=== PATIENT | female | born 1945 | race African-American/Black ===

== ENCOUNTER 2019-10-17 14:04 | Outpatient (CLI) | payer MEDICARE, MEDICAID, SELFPAY ==
--- NOTE | 2019-10-17 | ECHO_ITS ---
Patient Info Name: Mary Sanford Age: 73 years : 1945 Gender: Female Ht: 67 in Wt: 174 lbs BSA: 1.95 m2 HR: 76 bpm BP: 142 / 79 mmHg Technical Quality: Good Exam Date: 10/17/2019 2:21 PM Exam Location: [facility] Patient Status: Outpatient Admit Date: 10/17/2019 Staff Ordering Physician: PHYSICIAN NOT ON STAFF, NONSTAFF Screw Down: Tanya Aldridge RDCS Attending Provider: PHYSICIAN NOT ON STAFF, NONSTAFF Exam Type: CA echo doppler color flow Study Info Indications I45.10 - Unspecified right bundle-branch block Complete two-dimensional, color flow and Doppler transthoracic echocardiogram is performed. Summary 1. Normal LV size and wall thickness; normal global LV systolic function, ejection fraction estimated at about 65-70%. Grade 1 diastolic dysfunction. Moderate left, mild right atrial enlargement; atrial septum deviated to right suggestive of elevated left atrial pressures. Mild mitral regurgitation. No aortic stenosis or regurgitation. Mild tricuspid regurgitation, mild pulmonary hypertension, RVSP 42 mmHg. Mild pulmonic regurgitation. Left Ventricle Left ventricular chamber dimension is normal. Left ventricular systolic function is normal, estimated at 65-70%. There is no increased left ventricular wall thickness. Left ventricular septal wall motion is normal. The left ventricular diastolic function is grade I diastolic dysfunction. Right Ventricle Right ventricular chamber dimension is normal. Right ventricular systolic function is normal. Left Atria Left atrial chamber dimension is moderately enlarged. Right Atria Right atrial chamber dimension is mildly enlarged. Aortic Valve The aortic valve is trileaflet. There is no aortic valve sclerosis. There is no aortic valve stenosis. There is no aortic valve regurgitation. Pulmonic Valve The pulmonic valve is normal. There is mild pulmonic regurgitation. Mitral Valve The mitral valve has normal leaflets. There is no mitral valve stenosis. There is mild mitral valve regurgitation. Tricuspid Valve The tricuspid valve leaflets are normal. There is mild tricuspid valve regurgitation. Mild pulmonary hypertension, estimated pulmonary arterial systolic pressure is 42 mmHg. Pericardium/Pleural The pericardium appears normal. There is no pericardial effusion. Inferior Vena Cava Normal inferior vena cava with >50% collapse upon inspiration consistent with normal right atrial pressure, 10 mmHg. Aorta The aortic root size at the sinus of Valsalva is normal. The prox ascending aorta size is normal. Left Ventricular Outflow Tract Name Value Normal LVOT 2D LVOT Diameter 1.9 cm LVOT Doppler LVOT Peak Gradient 5 mmHg LVOT Mean Gradient 3 mmHg LVOT VTI 29 cm LVOT VTI/AV VTI Ratio 0.9 LVOT Stroke Volume 81 ml LVOT CO 6.0 l/min LVOT CI 3.1 l/min/m2 Pulmonic Valve
--- NOTE | 2019-10-17 | ECG_ITS ---
Measurements Intervals [place] Rate: 80 P: 65 NC: 169 QRS: -7 QRSD: 157 T: -3 QT: 418 QTc: 483 Interpretive Statements SINUS RHYTHM VENTRICULAR PREMATURE COMPLEX POSSIBLE LEFT ATRIAL ENLARGEMENT RIGHT BUNDLE BRANCH BLOCK BASELINE ARTIFACT- V3 ABNORMAL ECG Electronically Signed On 10-17-2019 14:50:04 CDT by Darrian Walker D.O.
== END 2019-10-17 14:05 | disposition home or self-care (01) ==
DX: I45.10 Unspecified right bundle-branch block (principal); I27.20 Pulmonary hypertension, unspecified
CPT/HCPCS: 93005; 93306

== ENCOUNTER 2020-08-28 10:28 | Outpatient (CLI) | payer MEDICARE, MEDICAID, SELFPAY ==
--- NOTE | ~2020-08-28 | MM_ITS ---
EXAMINATION: MM screening randy BI w carolann HISTORY: Screening TECHNIQUE: Craniocaudal and mediolateral oblique 3-D tomosynthesis images were obtained and synthetic 2-D images were generated. CAD analysis was submitted and interpreted. COMPARISON: Comparison to multiple prior studies sequentially, with oldest reviewed study dated 01/25. BREAST PARENCHYMAL COMPOSITION: The breasts are heterogenously dense, which may obscure small masses. FINDINGS: There are benign calcifications. There is no evidence of suspicious mass, calcification, or architectural distortion to suggest malignancy in either breast. There has been no suspicious interv al change. IMPRESSION: 1. No mammographic evidence of malignancy. 2. Recommend routine screening mammography in one year. BI-RADS Category 1: Negative Reviewed, dictated and finalized at location A.
== END 2020-08-28 10:29 | disposition home or self-care (01) ==
LOC: ANHIMG 10:36
PROVIDERS: Visit Provider Family Medicine
DX: Z12.31 Encounter for screening mammogram for malignant neoplasm of breast (principal)
CPT/HCPCS: 77063; 77067

== ENCOUNTER 2021-11-12 09:18 | Outpatient (CLI) | payer OTHER, SELFPAY ==
--- NOTE | ~2021-11-12 | MM_ITS ---
EXAMINATION: MM screening randy BI w carolann HISTORY: Screening. Status post right lumpectomy for malignancy. TECHNIQUE: Craniocaudal and mediolateral oblique 3-D tomosynthesis images were obtained and synthetic 2-D images were generated. CAD analysis was submitted and interpreted. COMPARISON: Comparison to multiple prior studies sequentially, with oldest reviewed study dated 07/2015. BREAST PARENCHYMAL COMPOSITION: The breasts are heterogeneously dense, which may obscure small masses . FINDINGS: There is no evidence of suspicious mass, calcification, or architectural distortion to sugg est malignancy in either breast. There has been no suspicious interval change. IMPRESSION: 1. No mammographic evidence of malignancy. 2. Recommend routine screening mammography in one year. BI-RADS Category 1: Negative Reviewed, dictated and finalized at location A.
== END 2021-11-12 09:19 | disposition home or self-care (01) ==
PROVIDERS: Visit Provider Obstetrics & Gynecology
DX: Z12.31 Encounter for screening mammogram for malignant neoplasm of breast (principal)
CPT/HCPCS: 77063; 77067

== ENCOUNTER 2022-05-22 19:13 | Emergency (ER) | payer OTHER, SELFPAY ==
[2022-05-22] VITALS (17 sets, daily range): BP systolic 123–154; BP diastolic 63–71; PULSE 75–92; RESP 15–21; TEMP 36.6; O2SAT 96–100
--- NOTE | ~2022-05-22 | CT_ITS ---
EXAMINATION: CT brain wo con DATE: 05/22/2022 19:52 INDICATION: Syncope TECHNIQUE: Computed tomography (CT) of the head was performed without intravenous contrast. The dose- length product was 681.00 mGy-cm. Automated exposure control and iterative reconstruction technique w ere employed. COMPARISON: None FINDINGS: No acute intracranial hemorrhage, infarction, mass or mass effect. No ventriculomegaly or m idline shift. Basilar cisterns are patent. No acute intracranial hemorrhage, infarction, mass or mass effect. Paranasal sinuses and mastoids are pneumatized. No depressed skull fractures. Midline sagitt al images are unremarkable. There are scattered mild periventricular and subcortical white matter laureen nges, most likely related to small vessel ischemic disease (microangiopathy). IMPRESSION: 1. No acute intracranial abnormality. 2: Chronic age-related findings. Reviewed, dictated and finalized at location A. LT FURNACE EXPEDITER
--- NOTE | ~2022-05-22 | CT_ITS ---
EXAMINATION: CT cervical spine wo con DATE: 05/22/2022 19:52 INDICATION: Syncope. Status post fall. Neck pain. TECHNIQUE: Computed tomography (CT) of the cervical spine was performed without intravenous contrast. The dose-length product was 310 mGy-cm. Automated exposure control and iterative reconstruction tech nique were employed. COMPARISON: None FINDINGS: Craniovertebral junction is normal. Vertebral body heights are maintained. Mild degenerativ e disc disease at C5-6. Vertebral body heights are maintained. No acute fracture or traumatic malalig nment. Odontoid process is normal. No significant paraspinal soft tissue abnormality. Lung apices are normal. Thyroid gland is unremarkable. No evidence for perched facet. There is an old avulsion fragm ent from the T1 spinous process. IMPRESSION: 1. No acute abnormality of the cervical spine. Reviewed, dictated and finalized at location A. BULLDOZER
--- NOTE | ~2022-05-22 | XR_ITS ---
XR chest 1V portable 05/22/2022 19:34 Indication: Syncope Procedure: AP portable chest Comparison: 02/23/2012 Findings: Cardiomegaly. Old right fifth rib fracture. No focal air space disease, pulmonary edema, pl eural effusion or suspected pneumothorax. No acute osseous abnormality. Impression: 1: No acute cardiopulmonary disease. Reviewed, dictated and finalized at location A. BING GUIDE Impression: 1: No acute cardiopulmonary disease.
--- NOTE | 2022-05-22 19:20 | ECG_ITS ---
Measurements Intervals [place] Rate: 78 P: 60 MD: 172 QRS: -24 QRSD: 163 T: -3 QT: 399 QTc: 455 Interpretive Statements SINUS RHYTHM VENTRICULAR PREMATURE COMPLEX POSSIBLE LEFT ATRIAL ENLARGEMENT RIGHT BUNDLE BRANCH BLOCK ABNORMAL ECG COMPARED TO ECG 10/17/2019 14:27:45 NO SIGNIFICANT CHANGES Electronically Signed On 05-22-2022 20:26:30 STAFF ASSISTANT by Darrian Walker D.O.
[2022-05-22 19:46] LABS: Basophils Percent Auto 0.8 % (0.2-1.2); Eosinophils Absolute Auto 0.3 K/mm3 (0-0.3); Eosinophils Percent Auto 4.9 % (0-4.4); Hematocrit 32.5 % (37.0-47.0); Hemoglobin 10.7 g/dL (12.0-15.0); Immature Granulocyte Absolute 0.03 K/mm3 (0.00-0.031); Immature Granulocyte Percent A 0.6 % (0-0.5); Lymphocytes Absolute Auto 0.96 K/mm3 (0.9-3.2); Lymphocytes Percent Auto 18.1 % (18.3-44.2); Mean Corpuscular HGB Conc 32.9 g/dl (32-36); Mean Corpuscular Hemoglobin 32.3 pg (26-34); Mean Corpuscular Volume 98.2 fl (80-100); Mean Platelet Volume 10.3 fl (7.4-10.4); Monocytes Absolute Auto 0.7 K/mm3 (0.1-0.6); Monocytes Percent Auto 13.8 % (2.6-8.5); Neutrophils Absolute Auto 3.3 K/mm3 (1.3-6.7); Neutrophils Percent Auto 61.8 % (45.5-73.1); Platelet Count Result 273 k/mm3 (150-375); Red Blood Count 3.31 M/mm3 (4.2-5.4); Red Cell Distribution Width 13.3 % (11.5-14.5); White Blood Count 5.3 K/mm3 (4.5-10.0)
[2022-05-22 20:00] LABS: INR 1.1; Prothrombin Time 14.1 Seconds (11.1-14.7)
[2022-05-22 20:59] LABS: Alanine Aminotransferase 30 U/L (6-35); Albumin Level 3.9 g/dL (3.5-5.1); Alkaline Phosphatase 41 U/L (38-126); Anion Gap 7 mmol/L (8-16); Aspartate Amino Transferase 46 U/L (14-36); Bilirubin,Total 0.4 mg/dL (0.2-1.3); Blood Urea Nitrogen 26 mg/dL (7-17); Calcium 9.2 mg/dL (8.4-10.2); Carbon Dioxide 28 mmol/L (22-30); Chloride 102 mmol/L (98-107); Estimated Glomerular Filt Rate 41; Glucose 112 mg/dL (65-110); Sodium 137 mmol/L (137-145)
[2022-05-22 21:11] LABS: Troponin I 0.014 ng/mL (0.000-0.034)
--- NOTE | 2022-05-22 21:11 | ED.GENADULT ---
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 Patient states that she was standing in the kitchen and passed out. Caregiver who is at bedside states that this happens to her frequently. She denied any chest pain, shortness of breath or palpitations. Onset (ago): minute(s) Location: head Radiation: non-radiation Severity: mild Relieving factors: none Exacerbating factors: none Associated symptoms: denies other symptoms Related Data Home Medications Medication Instructions Recorded Confirmed aspirin 81 mg tablet,delayed 81 mg PO DAILY 01/23/21 01/23/21 release (Adult Low Dose Aspirin) betamethasone valerate 0.1 % 1 applic topical DAILY PRN 01/23/21 01/23/21 topical cream bimatoprost 0.01 % eye drops 1 drp EACH EYE DAILY 01/23/21 01/23/21 (Lumigan) bisacodyl 5 mg tablet,delayed 5 mg PO ONCE 01/23/21 01/23/21 release brimonidine 0.2 % eye drops 1 drp EACH EYE Q8H 01/23/21 01/23/21 cholecalciferol (vitamin D3) 25 25 mcg PO DAILY 01/23/21 01/23/21 mcg (1,000 unit) capsule donepezil 10 mg tablet 10 mg PO QHS 01/23/21 01/23/21 dorzolamide 2 % eye drops 1 drp EACH EYE TID 01/23/21 01/23/21 fenofibrate nanocrystallized 145 145 mg PO DAILY 01/23/21 01/23/21 mg tablet ferrous sulfate 325 mg (65 mg 325 mg PO DAILY 01/23/21 01/23/21 iron) tablet fluoxetine 40 mg capsule 40 mg PO DAILY 01/23/21 01/23/21 hydrochlorothiazide 25 mg tablet 25 mg PO DAILY 01/23/21 01/23/21 ipratropium bromide 0.02 % 2.5 ml inhalation Q6H PRN 01/23/21 01/23/21 solution for inhalation losartan 50 mg tablet 50 mg PO DAILY 01/23/21 01/23/21 memantine 10 mg tablet 10 mg PO BID 01/23/21 01/23/21 mirabegron 50 mg tablet,extended 50 mg PO DAILY 01/23/21 01/23/21 release 24 hr (Myrbetriq) multivitamin 1 tablet PO DAILY 01/23/21 01/23/21 risperidone 1 mg tablet 1 mg PO QHS 01/23/21 01/23/21 Allergies Allergy/AdvReac Type Severity Reaction Status Date / Time No Known Allergies Allergy Verified 01/23/21 13:55 Review of Systems Review of Systems: All systems reviewed & are unremarkable except as noted in HPI and below Constitutional: Constitutional: Reports no additional constitutional complaints Eyes: Eyes: Reports no additional eye complaints ENT: Reports system reviewed and no additional complaints, except as documented Cardiovascular: Cardiovascular: Reports no additional cardiovascular complaints Respiratory: Respiratory: Reports no additional respiratory complaints Gastrointestinal: Gastrointestinal: Reports no additional gastrointestinal complaints Musculoskeletal: Musculoskeletal: Reports no additional musculoskeletal complaints Neurologic: Reports system reviewed and no additional complaints, except as documented Psychiatric: Psychiatric: Reports no additional psychiatric complaints [facility] Family History Family History (Reviewed 01/23/21 @ 14:12 by Steph Nice [facility]) Mother Carcinoma of colon Family history of diabetes mellitus in first degree relative Patient's mother is Father Family history of diabetes mellitus in first degree relative Patient's father is Other Hypertension Social History Social History (Reviewed 01/23/21 @ 14:12 by Steph Nice [facility]) Smoking status: Never smoker Second hand tobacco smoke exposure: No Alcohol intake: never Exam Narrative: GENERAL: Well-appearing, well-nourished, and in no acute distress. HEAD: Normocephalic, atraumatic. EYES: PERRLA and EOMI.. NECK: Supple. CHEST: Clear to auscultation.
== END 2022-05-22 21:55 ==
PROVIDERS: Emergency Provider Family Medicine; PCP Family Medicine
DX: R55 Syncope and collapse (principal); I10 Essential (primary) hypertension; F25.9 Schizoaffective disorder, unspecified; F42.9 Obsessive-compulsive disorder, unspecified; R41.83 Borderline intellectual functioning; Z79.82 Long term (current) use of aspirin; I49.3 Ventricular premature depolarization; I45.10 Unspecified right bundle-branch block; R94.31 Abnormal electrocardiogram [ECG] [EKG]
CPT/HCPCS: 36415; 70450; 71045; 72125; 80053; 84484; 85025; 85610; 93005; 99284